=== PATIENT | male | born 1980 | race Caucasian/White ===

== ENCOUNTER 2021-09-24 22:54 | Emergency (ER) | payer BC ==
[2021-09-25 03:34] LABS: HEMOGLOBIN 11.8 gm/dl (14.0-17.5); RED BLOOD COUNT 4.49 M/UL (4.20-5.50); WHITE BLOOD COUNT 8.4 K/UL (4.5-11.0)
[2021-09-25 03:55] LABS: BUN/CREATININE RATIO 18 (0-10)
== END 2021-09-25 06:16 | disposition home or self-care (01) ==
LOC: ER1 22:54
PROVIDERS: Family Medicine
DX: K64.9 Unspecified hemorrhoids (principal)
CPT/HCPCS: 80053; 83690; 85025; 87040; 96374; 99284; J1885; Q9967